=== PATIENT | female | born 1960 | race Caucasian/White ===

== ENCOUNTER 2017-09-25 19:21 | Emergency (ER) | payer MEDICAID ==
[~2017-09-25 19:21] MED LIST: ALBU1AER INH; BACL20TA PO; BUSP10TA PO; CETI10 PO; CYPR4TAB PO; LACT20SO4 PO; MOBI15TA PO; OMEP20TA39 PO; PROP60TA2 PO; SPIR50TA21 PO; SPIRCAP INH; ZOLP10TA3 PO
[2017-09-25 19:24] VITALS: BP 120/76; PULSE 97; RESP 18; TEMP 98.4; O2SAT 100
--- NOTE | 2017-09-25 21:05 | RADRPT ---
EXAM DATE/TIME: 09/25/2017 19:59 [facility] COMPARISON: CHEST SINGLE AP, July 30, 2015, 7:24. INDICATIONS : Chest and rib pain. MEDICAL HISTORY : Chronic obstructive pulmonary disease. SURGICAL HISTORY : None. ENCOUNTER: Initial ACUITY: 1 day PAIN SCORE: 10/10 LOCATION: Bilateral chest FINDINGS: PA and lateral views of the chest demonstrate a normal-sized cardiac silhouette. There is no effusion , consolidation, or pneumothorax. The bones and soft tissues demonstrate no acute abnormality. CONCLUSION: No acute cardiopulmonary abnormality is identified. Aman Delgado MD on September 25, 2017 at 21:02 Board Certified Radiologist. This report was verified electronically.
[2017-09-25] MEDS ORDERED: KETOROLAC TROMETHAMINE 60 MG/2 ML (IM) VIAL IM ONE (21:15)
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
[2017-09-25] MEDS ORDERED: FURO1TAB62 PO (21:31)
[2017-09-25] MEDS ORDERED: OMEP20TA93 PO (21:31)
[2017-09-25] MEDS ORDERED: XIFA550T4 PO (21:31)
[2017-09-25] MEDS ORDERED: SPIR50TA PO (21:31)
[2017-09-25] MEDS ORDERED: MOBI7.5T PO (21:35)
== END 2017-09-25 22:11 | disposition home or self-care (01) ==
LOC: NEPK 19:21
DX: S20.211A Contusion of right front wall of thorax, initial encounter (principal); V29.9XXA Motorcycle rider (driver) (passenger) injured in unspecified traffic accident, initial encounter
CPT/HCPCS: 71020; 94150; 96372; 99284; J1885